=== PATIENT | male | born 1960 | race Asian ===

== ENCOUNTER 2018-04-04 18:00 | Emergency (ER) | payer SELFPAY ==
[~2018-04-04] VITALS: Ht 162.6 cm; Wt 57.3 kg
[2018-04-04 18:27] VITALS: BP 139/98
[2018-04-04] MEDS ORDERED: KETOROLAC TROMETHAMINE 10 MG TABLET PO ONE (19:45)
== END 2018-04-04 20:15 | disposition home or self-care (01) ==
LOC: EMS 18:02
DX: M10.9 Gout, unspecified (principal)